=== PATIENT | male | born 1950 | race Caucasian/White ===

== ENCOUNTER 2017-10-22 23:10 | Inpatient (IN) | payer OTHER ==
[~2017-10-22] VITALS: Ht 182.9 cm; Wt 72.6 kg
--- NOTE | 2017-10-22 23:15 | NUR ---
TO BED 12 A 67 YO MALE PATIENT BBWIFE AND REPORTS, "BEEN FASTING FOR ONE WEEK; 2 DAYS AGO STARTED C/O WEAKNESS/SOB AND WENT TO URGENT CARE WHERE EVERYTHING WAS DONE AND NOW C/O CP UPON INSPIRATION." PATIENT IS AAOX4, SKIN WARM AND DRY. PLACED ON O2 CANNULA AT 2LPM VIA. PLACED ON CARDIAC AND VS MONITORING. GOWNED. KEPT HOB ELEVATED. COMFORT MEASURES RENDERED.
--- NOTE | 2017-10-22 23:25 | NUR ---
STARTED A SALINE LOCK ON THE LAC G18, BLOOD DRAWN AND SENT TO LAB.
--- NOTE | 2017-10-22 23:28 | NUR ---
DR SCALES AT BEDSIDE TO EVALUATE PATIENT.
[2017-10-22] MEDS ORDERED: IV NS 0.9% 1,000 ML BAG IV ONE (23:30)
[2017-10-22] MEDS ORDERED: CEFTRIAXONE 1GM BAG (ER ONLY) 50 ML IV ONE ×2 (23:30→23:39)
[2017-10-22] MEDS ORDERED: LEVOFLOXACIN 750 MG /D5W 150ML 150 ML IV ONE ×2 (23:30→23:39)
[2017-10-22 23:45] LABS: EOSINOPHILS % (AUTO) 0.4 % (0.0-6.0); HEMATOCRIT 43 % (39-51); HEMOGLOBIN 14.5 g/dL (13.5-17.5); LYMPHOCYTES # (AUTO) 0.9 /CMM (0.8-4.8); LYMPHOCYTES % (AUTO) 6.7 % (20.0-44.0); MEAN CORPUSCULAR HGB CONC 33 g/dl (31.0-36.0); MEAN CORPUSCULAR VOLUME 85 fL (80-96); MONOCYTES # (AUTO) 0.1 /CMM (0.1-1.30); MONOCYTES % (AUTO) 0.6 % (2.0-12.0); NEUTROPHILS # (AUTO) 12.5 /CMM (1.8-8.9); NEUTROPHILS % (AUTO) 92.3 % (43.0-81.0); PLATELET COUNT (AUTO) 280 /CMM (150-450); RDW COEFFICIENT OF VARIATION 13.5 (11.5-15.0); RED BLOOD CELL COUNT(AUTO) 5.13 MIL/uL (4.5-6.0); WHITE BLOOD COUNT (AUTO) 13.6 K/uL (4.3-11.0)
[2017-10-22] MEDS ORDERED: ACETAMINOPHEN 325 MG TABLET ONE (23:51)
[2017-10-22 23:57] LABS: CALCIUM, SERUM 7.9 mg/dL (8.5-10.1); CARBON DIOXIDE 24 mmol/L (21-32); CHLORIDE 89 mmol/L (98-107); GLUCOSE 129 mg/dL (74-106); POTASSIUM 3.7 mmol/L (3.5-5.1); SODIUM SERUM 128 mmol/L (136-145); UREA NITROGEN, BLOOD 15 mg/dL (7-18)
[2017-10-23] VITALS (31 sets, daily range): BP systolic 88–128; BP diastolic 46–99
[2017-10-23] MEDS ORDERED: ACETAMINOPHEN 325 MG TABLET PO ONE
[2017-10-23 00:05] LABS: TROPONIN I < 0.017 ng/mL (0.00-0.056)
[2017-10-23 00:09] LABS: ALANINE AMINOTRANSFERASE 105 U/L (12-78); ALBUMIN 2.1 g/dL (3.4-5.0); ALKALINE PHOSPHATASE 249 U/L (46-116); ASPARTATE AMINOTRANSFERASE 140 U/L (15-37); B-TYPE NATRIURETIC PEPTIDE 422 PG/ML (0-125); BILIRUBIN,DIRECT 0.6 mg/dL (0.0-0.2); BILIRUBIN,TOTAL 1.4 mg/dL (0.2-1.0); TOTAL PROTEIN, SERUM 6.3 g/dL (6.4-8.2)
[2017-10-23 00:35] LABS: APPEARANCE,URINE CLEAR (CLEAR); BILIRUBIN,URINE 1+ (NEGATIVE); BLOOD, URINE NEGATIVE Ery/uL (NEGATIVE); KETONES,URINE NEGATIVE (NEGATIVE); LEUKOCYTE ESTERASE ,URINE NEGATIVE (NEGATIVE); NITRITE, URINE NEGATIVE (NEGATIVE); PROTEIN,URINE 1+ mg/dl (NEGATIVE); UGLUCOSE NEGATIVE (NEGATIVE)
[2017-10-23 00:36] LABS: COLOR,URINE DARK YELLOW (YELLOW)
[2017-10-23 00:40] LABS: BACTERIA,URINE Moderate /HPF (None Seen); RBC,URINE 0-2 /HPF (0-2); SQUAMOUS EPITHELIAL CELL,UR Few /HPF (None Seen)
[2017-10-23 00:41] LABS: HYALINE CASTS, URINE Few /LPF (None Seen)
--- NOTE | 2017-10-23 00:42 | NUR ---
PATIENT TO RADIOLOGY.
--- NOTE | 2017-10-23 00:43 | NUR ---
CALLED NURSE SUP FOR TELE BED
[2017-10-23] MEDS ORDERED: IV NS 0.9% 1,000 ML BAG IV ONE (01:30)
--- NOTE | 2017-10-23 01:43 | NUR ---
DR SCALES AT BEDSIDE TO PLACE A CENTRAL LINE.
[2017-10-23] MEDS ORDERED: NOREPINEPHRINE 4 MG/4 ML AMPUL IV ONE (02:28)
[2017-10-23] MEDS ORDERED: NOREPINEPHRINE 8 MG in IV D5W 500 ML IV PRN ×2 (02:30→03:00)
--- NOTE | 2017-10-23 02:34 | NUR ---
REPORT GIVEN TO ENZO ZHAO FOR ICU ADMISSION AND SABINE.
[2017-10-23] MEDS ORDERED: Z GUARD REMEDY 2 OZ OINT TP PRN (03:00)
[2017-10-23] MEDS ORDERED: ONDANSETRON HCL/PF 4 MG/2 ML VIAL IVP PRN (03:00)
[2017-10-23] MEDS ORDERED: ACETAMINOPHEN 325 MG TABLET PO PRN (03:00)
[2017-10-23] MEDS ORDERED: VANCOMYCIN 1 GM in IV D5W 250 ML IV ONE (03:00)
[2017-10-23] MEDS ORDERED: IBUPROFEN 600 MG TABLET PO PRN (03:00)
[2017-10-23] MEDS: IV NS 0.9% 1,000 ML IV PRN ×3 (03:59→23:36)
[2017-10-23] MEDS: ALBUTEROL FS 2.5 MG/0.5 ML VIAL.NEB NEB SCH ×5 (04:00→20:03)
[2017-10-23] MEDS: IPRATROPIUM NEB FS 0.5 MG/2.5 ML AMPUL.NEB NEB SCH ×5 (04:00→20:03)
--- NOTE | 2017-10-23 04:15 | NUR ---
WIRE SPIRAL BINDER. ADMISSION. RECEIVED THE PT FROM ER VIA GURNEY TO ROOM 258, PT AWAKE, ALERT, FOLLOW COMMANDS ADMITTED FOR ICU PNEUMONIA, LEVOPHED STARTED FROM ER. LEVO RECEIVED 4MCG/MIN. IV RT IJ TRIPLE LUMEN. HOB ELEVATED. CARNALLITE PLANT OPERATOR SHOWING NSR. AFEBRILE. WILL CONTINUE TO MONITOR VITALS.
[2017-10-23] MEDS ORDERED: VANCOMYCIN 1 GM VIAL ONE (04:31)
[2017-10-23] MEDS ORDERED: NOREPINEPHRINE 8 MG in IV NS 0.9% 500 ML IV PRN (07:00)
--- NOTE | 2017-10-23 08:00 | NUR ---
ICU/RN: Pt received awake, alert, no distress noted. Denies CP and reports feeling better.
[2017-10-23] MEDS: HYDROCORTISONE SOD SUCCINATE 100 MG/2 ML VIAL IV SCH ×3 (08:13→17:23)
[2017-10-23] MEDS: FLUDROCORTISONE 0.1 MG TABLET PO SCH (08:13)
[2017-10-23] MEDS: ENOXAPARIN SODIUM 40 MG/0.4 ML DISP.SYRIN SQ SCH (08:14)
[2017-10-23] MEDS: NOREPINEPHRINE 8 MG in IV NS 0.9% 500 ML IV PRN (08:32)
--- NOTE | 2017-10-23 09:30 | NUR ---
ICU/RN: Dr Ken at bedside, POC porfirio pt. Verbalized understanding and in agreement with POC
[2017-10-23] MEDS ORDERED: LEVOFLOXACIN 750 MG /D5W 150ML 150 ML IV SCH (11:00)
[2017-10-23] MEDS: OSELTAMIVIR PHOSPHATE 75 MG CAPSULE PO SCH ×2 (11:33→17:23)
[2017-10-23] MEDS ORDERED: VANCOMYCIN 0.75 GM in IV D5W 250 ML IV SCH (13:00)
--- NOTE | 2017-10-23 14:50 | NUR ---
ICU/RN: Pt off Levophed. SBP maintained over 90mmHg
--- NOTE | 2017-10-23 19:07 | NUR ---
ICU/RN: Remains comfortable, no distress, off Levo. Care endorsed to PM rn for SABINE
--- NOTE | 2017-10-23 21:55 | NUR ---
BUSINESS CONTROL SPECIALIST. INITIAL ASSESSMENT. RECEIVED THE PT REST ON THE BED. AWAKE, ALERT, FOLLOW COMMANDS. FLOOR LAYER TILE SHOWING NSR. IV RT IJ TRIPLE LUMEN , LT HAND 18G. IVF NS 100ML/H,LEVO 2MCG/KG/MIN,HOB ELEVATED. WILL CONTINUE TO MONITOR VITALS.
--- NOTE | 2017-10-23 21:59 | NUR ---
RECREATION SUPERINTENDENT. AROUND 1999, PT BP 75/50. LEVOPHED RESTARTED.WILL CONTINUE TO MONITOR.
[2017-10-23] MEDS: CEFTRIAXONE 2 G in IV D5W 100 ML IV SCH (23:29)
[2017-10-23] MEDS: LEVOFLOXACIN 750 MG /D5W 150ML 150 ML IV SCH (23:54)
[2017-10-24] VITALS (32 sets, daily range): BP systolic 90–135; BP diastolic 26–83
[2017-10-24] MEDS: IPRATROPIUM NEB FS 0.5 MG/2.5 ML AMPUL.NEB NEB SCH ×6 (00:13→20:35)
[2017-10-24] MEDS: ALBUTEROL FS 2.5 MG/0.5 ML VIAL.NEB NEB SCH ×6 (00:13→20:35)
--- NOTE | 2017-10-24 03:49 | NUR ---
FELT PAD CUTTER AM CARE, ORAL CARE, BED BATH GIVEN. LINEN CHANGED, REMAINING SAME OXYGEN 2L VIA NASAL CANNULA TOLERATED WELL. SAT 95%. NO ACUTE DISTRESS NOTED. FLOOR NURSE SHOWING NSR. IV RT J TRIPLE LUMEN. IVF NS 100ML/H.LEVOPHED 2MCG/MIN.HOB ELEVATED, TURN AND REPOSITION PT INDEPENDENT. AFEBRILE, WILL CONTINUE TO MONITOR VITALS,
[2017-10-24 05:12] LABS: BASOPHILS # (AUTO) 0.1 /CMM (0.0-0.2); BASOPHILS % (AUTO) 0.5 % (0.0-2.0); HEMATOCRIT 35 % (39-51); HEMOGLOBIN 11.6 g/dL (13.5-17.5); LYMPHOCYTES % (AUTO) 4.9 % (20.0-44.0); MEAN CORPUSCULAR HGB CONC 33 g/dl (31.0-36.0); MEAN CORPUSCULAR VOLUME 86 fL (80-96); MONOCYTES # (AUTO) 0.3 /CMM (0.1-1.30); MONOCYTES % (AUTO) 1.5 % (2.0-12.0); NEUTROPHILS # (AUTO) 18.9 /CMM (1.8-8.9); NEUTROPHILS % (AUTO) 93.1 % (43.0-81.0); PLATELET COUNT (AUTO) 281 /CMM (150-450); RDW COEFFICIENT OF VARIATION 13.6 (11.5-15.0); RED BLOOD CELL COUNT(AUTO) 4.04 MIL/uL (4.5-6.0); WHITE BLOOD COUNT (AUTO) 20.3 K/uL (4.3-11.0)
[2017-10-24 05:30] LABS: ALBUMIN 1.6 g/dL (3.4-5.0); CALCIUM, SERUM 6.2 mg/dL (8.5-10.1); CREATININE 0.7 mg/dL (0.6-1.3); MAGNESIUM 3.8 mg/dL (1.8-2.4); PHOSPHORUS 2.3 mg/dL (2.5-4.9); POTASSIUM 3.1 mmol/L (3.5-5.1)
[2017-10-24 05:32] LABS: BAND % (MANUAL) 1 % (0.0-5.0); LYMPHOCYTES % (MANUAL) 3 % (16-48); MONOCYTES % (MANUAL) 3 % (0-11.0); NEUTROPHILS % (MANUAL) 93 (42-76)
[2017-10-24 05:38] LABS: THYROID STIMULATING HORMONE 0.639 uIU/mL (0.358-3.74)
--- NOTE | 2017-10-24 06:05 | NUR ---
RN NOTES AM LABS, POTASSIUM LEVEL 3.1. TIANNA SINGLETON MADE AWARE WITH NEW ORDER FOR K DUR PO 40MEQ X 1. ORDER READ BACK FOR CLARIFICATION. ORDERS NOTED, WILL AUBREE OUT
[2017-10-24] MEDS ORDERED: POTASSIUM CHLORIDE 20 MEQ TAB.PRT.SR PO SCH (06:30)
[2017-10-24] MEDS: HYDROCORTISONE SOD SUCCINATE 100 MG/2 ML VIAL IV SCH ×3 (08:29→16:56)
[2017-10-24] MEDS: OSELTAMIVIR PHOSPHATE 75 MG CAPSULE PO SCH (08:29)
[2017-10-24] MEDS: FLUDROCORTISONE 0.1 MG TABLET PO SCH (08:29)
[2017-10-24] MEDS: IV NS 0.9% 1,000 ML IV PRN ×2 (08:30→22:06)
[2017-10-24] MEDS: ENOXAPARIN SODIUM 40 MG/0.4 ML DISP.SYRIN SQ SCH (08:30)
[2017-10-24] MEDS: NOREPINEPHRINE 8 MG in IV NS 0.9% 500 ML IV PRN (08:33)
--- NOTE | 2017-10-24 10:00 | NUR ---
ICU/RN: Dr Ken at bedside, discussed POC with pt. If pt remains off Levophed may downgrade in afternoon.
[2017-10-24] MEDS ORDERED: K PHOS NEUTRAL 250 MG TABLET PO ONE (12:30)
--- NOTE | 2017-10-24 19:21 | NUR ---
ICU/RN: Care endorsed to pm rn, denies pain and discomfort at this time. SBP maintained at parameters.
--- NOTE | 2017-10-24 19:47 | NUR ---
TAKER OUT INITIAL TRANSFER NOTES RECEIVED PT ON RA AIR AOX4, WELL MARII DENIES ANY SOB OR PAIN, WITH TRANSFER ORDER TO TEL, AWAITING TO GIVE REPORT SOON RM MADE AVAILABLE. WILL F/U.
--- NOTE | 2017-10-24 20:50 | NUR ---
TRANSFER PT TO TEL REPORT GIVEN TO RN BY AT BED SIDE, PT VS WNR, O2 SAT 98% ON RA, WELL MARII, BP AT TIME OF TRANSFER 105/67 88 18, 97.8, ALL PERSONAL BELONGING TRANSFERED WITH PT.
--- NOTE | 2017-10-24 20:55 | NUR ---
TELE/RN OPENING NOTES PT RECEIVED FROM ICU VIA BED. A/OX3. BEDSIDE REPORT PROVIDED. ON ROOM AIR, BREATHING EVEN AND UNLABORED. IV TO LAC AND RIGHT IJ PATENT AND INTACT. PLACED ON TELE MONITOR, SHOWING NSR WITH HR 94. ORIENTED PT TO ROOM AND CALL LIGHT. SIDE RAILS UPX2. BED IN LOW/LOCKED POSITION WITH CALL LIGHT IN REACH. V/S TAKEN, 105/65, HR=79, R=20, TEMP=97.6F, 95% ON RA WILL CONTINUE TO MONITOR
[2017-10-25] VITALS: BP 113/72
[2017-10-25] MEDS: CEFTRIAXONE 2 G in IV D5W 100 ML IV SCH (00:02)
--- NOTE | 2017-10-25 00:05 | NUR ---
MS/RN NOTES IV TO LAC ACCIDENTALLY PULLED OUT. REINSERTED TO RIGHT HAND #22. FLUSHES WELL, NO S/S OF INFILTRATION
[2017-10-25] MEDS: LEVOFLOXACIN 750 MG /D5W 150ML 150 ML IV SCH (01:00)
[2017-10-25] MEDS: ALBUTEROL FS 2.5 MG/0.5 ML VIAL.NEB NEB SCH ×6 (03:30→23:30)
[2017-10-25] MEDS: IPRATROPIUM NEB FS 0.5 MG/2.5 ML AMPUL.NEB NEB SCH ×6 (03:30→23:30)
[2017-10-25 04:00] VITALS: BP 119/76
[2017-10-25 07:01] LABS: BASOPHILS % (AUTO) 0.1 % (0.0-2.0); EOSINOPHILS % (AUTO) 0.1 % (0.0-6.0); HEMATOCRIT 36 % (39-51); HEMOGLOBIN 11.7 g/dL (13.5-17.5); LYMPHOCYTES # (AUTO) 1.2 /CMM (0.8-4.8); LYMPHOCYTES % (AUTO) 8.8 % (20.0-44.0); MEAN CORPUSCULAR HGB CONC 33 g/dl (31.0-36.0); MEAN CORPUSCULAR VOLUME 87 fL (80-96); MONOCYTES # (AUTO) 0.3 /CMM (0.1-1.30); MONOCYTES % (AUTO) 2.3 % (2.0-12.0); NEUTROPHILS # (AUTO) 12.3 /CMM (1.8-8.9); NEUTROPHILS % (AUTO) 88.7 % (43.0-81.0); PLATELET COUNT (AUTO) 328 /CMM (150-450); RDW COEFFICIENT OF VARIATION 13.8 (11.5-15.0); WHITE BLOOD COUNT (AUTO) 13.9 K/uL (4.3-11.0)
--- NOTE | 2017-10-25 07:10 | NUR ---
INITIAL RN NOTES: PATIENT RESTING IN BED. NONLABORED BREATHING NOTED ON ROOM AIR. DENYING PAIN AND DENYING SOB. IJ TRIPLE LUMEN PATENT AND INTACT. PATIENT SINUS RHYTHM ON TELE MONITOR, 7O. AND IV ON RIGHT HAND GAUGE #22 PATENT AND INTACT. BED IN LOWEST LOCKED POSITION. CALL LIGHT WITHIN REACH. WILL CONTINUE TO MONITOR.
--- NOTE | 2017-10-25 07:35 | NUR ---
TELE/RN CLOSING NOTES PT AWAKE, A/OX4. ON ROOM AIR, BREATHING EVEN AND UNLABORED. DENIES SOB OR PAIN AT THIS TIME. SLEPT INTERMITTENTLY THROUGHOUT THE NIGHT. TELE MONITOR SHOWING NSR WITH HR 80'S. IV TO RIGHT HAND PATENT AND INTACT, IVF CURRENTLY ON HOLD, PT DOING AM CARE. IV TO RIGHT IJ PATENT AND INTACT. NO SIGNIFICANT CHANGES OVERNIGHT. BED IN LOW/LOCKED POSITION WITH CALL LIGHT IN REACH. SIDE RAILS UPX2. ENDORSED TO DAY SHIFT RN SABINE.
[2017-10-25 08:00] VITALS: BP 117/83
[2017-10-25 08:04] LABS: CALCIUM, SERUM 7.1 mg/dL (8.5-10.1); CREATININE 0.7 mg/dL (0.6-1.3); MAGNESIUM 2.3 mg/dL (1.8-2.4); PHOSPHORUS 2.7 mg/dL (2.5-4.9); POTASSIUM 3.5 mmol/L (3.5-5.1)
[2017-10-25] MEDS: HYDROCORTISONE SOD SUCCINATE 100 MG/2 ML VIAL IV SCH (08:42)
[2017-10-25] MEDS: FLUDROCORTISONE 0.1 MG TABLET PO SCH (08:49)
[2017-10-25] MEDS: ENOXAPARIN SODIUM 40 MG/0.4 ML DISP.SYRIN SQ SCH (08:51)
[2017-10-25 11:26] VITALS: BP 115/73
[2017-10-25] MEDS ORDERED: LEVOFLOXACIN (500MG) 500 MG TABLET PO SCH (13:30)
[2017-10-25 15:35] VITALS: BP 103/68
--- NOTE | 2017-10-25 17:00 | NUR ---
RN NOTES: IJ TRIPLE LUMEN REMOVE PER DR MATTHEWS'S ORDERS. PROTOCOL FOLLOWED UPON REMOVAL- PATIENT POSITIONED SUPINE, ASKED TO HOLD BREATH, LINE REMOVED SLOWLY IN ONE CONTINUOUS MOTION: NO RESISTANCE WAS MET. PRESSURE WAS APPLIED TO SITEW FOR AT SITE FOR 2 MINUTES. AN OCCLUSIVE DRESSING WAS APPLIED WITH MICROFOAM TAPE, PRESSURE DRESSING TAPE, APPLIED. REMOVAL AT 1700. DRESSING ASSESSED EVERY 15 MINS, INTACT AND NO BLEEDING NOTED. PATIENT DENYING SOB AND DENYING CHEST PAIN
--- NOTE | 2017-10-25 17:00 | NUR ---
RN NOTES: IJ TRIPLE LUMEN REMOVE PER DR MATTHEWS'S ORDERS. PROTOCOL FOLLOWED UPON REMOVAL- PATIENT POSITIONED SUPINE, ASKED TO HOLD BREATH, LINE REMOVED SLOWLY IN ONE CONTINUOUS MOTION: NO RESISTANCE WAS MET. PRESSURE WAS APPLIED TO SITE FOR AT SITE FOR 2 MINUTES. AN OCCLUSIVE DRESSING WAS APPLIED WITH MICROFOAM TAPE, PRESSURE DRESSING TAPE, APPLIED. REMOVAL AT 1700. TIP INTACT AND MEASUREMENT OF CATHETER VERIFIED. DRESSING ASSESSED EVERY 15 MINS, INTACT AND NO BLEEDING NOTED. PATIENT DENYING SOB AND DENYING CHEST PAIN
--- NOTE | 2017-10-25 18:30 | NUR ---
RN NOTES: PATIENT RESTING IN BED. NONLABORED BREATHING NOTED ON ROOM AIR. NO SIGNS OF DISTRESS NOTED. PATIENT DENYING SOB AND DENYING CHEST PAIN. PATIENT STABLE THROUGHOUT SHIFT. AOX4. IV SITE ON RIGHT HAND PATENT AND INTACT GAUGE 22. BED IN LOWEST LOCKED POSITION. CALL LIGHT WITHIN REACH. PATIENT EDUCATED ON AMBULATION. PATIENT AMBULATED, STEADY- NO SIGNS OF DISTRESS NOTED. PATIENT STEADY. NO SOB UPON AMBULATION. SINUS RHYTHM 90 ON TELE MONITOR. WILL ENDORSE TO NEXT SHIFT
--- NOTE | 2017-10-25 19:15 | NUR ---
TELE / TIE FASTENER; RECEIVED PT JUST OUT FROM THE BATHROOM AND NOTED BRUSHING HIS TEETH ALSO. DENIES ANY PAIN. BREATHING NON LABORED AND EVEN. WITH TELEMETRY ON. HL ON RH # 20 INTACT AND PATENT. RT SIDE OF THE NECK WITH DRESSING INTACT AND DRY. PT REMINDED TO CALL FOR HELP AND CALL LIGHT WITHIN REACH. BED ON LOWER POSITION AND LOCKED FOR SAFETY. SIDE RAILS UPPER PART OF BED ARE UP FOR SAFETY. WILL CONTINUE TO MONITOR. CALL LIGHT WITHIN REACH.
--- NOTE | 2017-10-25 19:40 | NUR ---
TELE/LABORATORY EQUIPMENT CLEANER; PT SAYING HAVING ABDOMINAL UPSET AND PLACED A CALL TO DR. TIANNA SINGLETON. AWAITING .
--- NOTE | 2017-10-25 19:50 | NUR ---
TELE/DINKEY LOCOMOTIVE ENGINEER; DR. TIANNA SINGLETON CALLED BACK WITH ORDERS AND CARRIED OUT.
[2017-10-25 20:00] VITALS: BP 111/63
[2017-10-25] MEDS: SUCRALFATE 1 G TABLET PO SCH (21:29)
[2017-10-26] VITALS: BP 115/65
[2017-10-26] MEDS: IPRATROPIUM NEB FS 0.5 MG/2.5 ML AMPUL.NEB NEB SCH ×3 (03:28→11:30)
[2017-10-26] MEDS: ALBUTEROL FS 2.5 MG/0.5 ML VIAL.NEB NEB SCH ×3 (03:29→11:30)
[2017-10-26 04:00] VITALS: BP 110/63
--- NOTE | 2017-10-26 06:53 | NUR ---
TELE/TRAINING AND DEVELOPMENT OFFICER; PT ON SR 70 . SLEPT FAIRLY. BREATHING NON LABORED. CONTINUE TO MONITOR. CALL LIGHT WITHIN REACH. WILL ENDORSE TO THE DAY SHIFT NURSE.
[2017-10-26 07:05] VITALS: BP 119/76
[2017-10-26 07:16] LABS: BASOPHILS % (AUTO) 0.3 % (0.0-2.0); EOSINOPHILS % (AUTO) 0.4 % (0.0-6.0); HEMATOCRIT 36 % (39-51); LYMPHOCYTES # (AUTO) 2.1 /CMM (0.8-4.8); LYMPHOCYTES % (AUTO) 15.3 % (20.0-44.0); MEAN CORPUSCULAR HGB CONC 33 g/dl (31.0-36.0); MEAN CORPUSCULAR VOLUME 86 fL (80-96); MONOCYTES # (AUTO) 0.2 /CMM (0.1-1.30); MONOCYTES % (AUTO) 1.1 % (2.0-12.0); NEUTROPHILS # (AUTO) 11.6 /CMM (1.8-8.9); NEUTROPHILS % (AUTO) 82.9 % (43.0-81.0); RDW COEFFICIENT OF VARIATION 14.1 (11.5-15.0); RED BLOOD CELL COUNT(AUTO) 4.22 MIL/uL (4.5-6.0)
[2017-10-26] MEDS ORDERED: PANTOPRAZOLE 40 MG TABLET.DR PO SCH (07:30)
[2017-10-26 07:39] LABS: CALCIUM, SERUM 7.5 mg/dL (8.5-10.1); CREATININE 0.7 mg/dL (0.6-1.3); MAGNESIUM 2.3 mg/dL (1.8-2.4); POTASSIUM 3.9 mmol/L (3.5-5.1)
--- NOTE | 2017-10-26 07:40 | NUR ---
SAMPLE COORDINATOR OPENING NOTES RECEIVED PATIENT IN BED, AWAKE ALERT AND ORIENTED X 4, RESPIRATIONS EVEN AND UNLABORED, DENIES ANY PAIN OR DISCOMFORT AT THIS TIME. ON CARDIAC MONITORING 83BPM,IV SITE TO RIGHT HAND 22 GAUGE, NO REDNESS , NO INFILTRATION TO SITE. SAFETY MEASURES IN PLACE, CALL LIGHT KEPT WITHIN REACH, WILL CONTINUE TO MONITOR.
[2017-10-26 08:00] VITALS: BP 119/76
[2017-10-26] MEDS: SUCRALFATE 1 G TABLET PO SCH (08:20)
[2017-10-26] MEDS: FLUDROCORTISONE 0.1 MG TABLET PO SCH (08:20)
[2017-10-26] MEDS: ENOXAPARIN SODIUM 40 MG/0.4 ML DISP.SYRIN SQ SCH (08:22)
[2017-10-26] MEDS ORDERED: predniSONE 20 MG TABLET PO SCH (09:00)
[2017-10-26 09:15] LABS: PLATELET COUNT (AUTO) 322 /CMM (150-450)
[2017-10-26] MEDS ORDERED: METH4TAB3 PO (10:14)
[2017-10-26] MEDS ORDERED: LACT1CAP61 PO (10:14)
[2017-10-26] MEDS ORDERED: LEVO500T75 PO (10:14)
--- NOTE | 2017-10-26 11:50 | NUR ---
MS BALER NOTES. PATIENT DISCHARGED IN STABLE CONDITION, NO COMPLAINTS OF PAIN OR DISCOMFORT, RESPIRATIONS EVEN AND UNLABORED. ID AND IV BAND REMOVED, NO BLEEDING TO IV SITES. RIGHT JUGULAR VEIN SITE DRY, NO BLEEDING. NO SIGNS AND SYMPTOMS OF INFECTION TO SITE, ALL BELONGINGS WITH PATIENT, DISCHARGE INSTRUCTIONS GIVEN TO PATIENT, VERBALIZE UNDERSTANDING. PATIENT LEFT IN STABLE CONDITION ACCOMPANIED BY PARTNER RINKU.
[2017-10-27 21:13] LABS: *MYCOPLASMA PNEUMONIAE IgG 163 U/mL (0-99); *MYCOPLASMA PNEUMONIAE IgM <770 U/mL (0-769)
== END 2017-10-26 12:00 | disposition home or self-care (01) | DRG 871 ==
LOC: ER 23:21 → TELE1 10-23 01:27 → ICU 10-23 02:41 → TELE 10-24 21:43 → MED 10-26 10:08
PROVIDERS: ADMIT Nurse Practitioner Acute Care; ATTEND Internal Medicine
DX: A41.9 Sepsis, unspecified organism (principal); N17.0 Acute kidney failure with tubular necrosis; E43 Unspecified severe protein-calorie malnutrition; R65.21 Severe sepsis with septic shock; E87.2 Acidosis; J15.6 Pneumonia due to other Gram-negative bacteria; E44.0 Moderate protein-calorie malnutrition; J15.4 Pneumonia due to other streptococci; E87.1 Hypo-osmolality and hyponatremia; K21.9 Gastro-esophageal reflux disease without esophagitis; T38.0X5A Adverse effect of glucocorticoids and synthetic analogues, initial encounter; Y92.009 Unspecified place in unspecified non-institutional (private) residence as the place of occurrence of the external cause
CPT/HCPCS: 36415; 71045-TC; 71046; 80048-TC; 80053-TC; 80061-TC; 80076-TC; 80202-TC; 81000-TC; 83605-TC; 83735-TC; 83880; 84100-TC; 84443-TC; 84484-TC; 85025-TC; 86632; 86738; 87040-TC; 87081-TC; 87086-TC; 87186-TC; 87400; 93307-TC; A4606; J0696; J1650; J1720; J1956; J3370; J7030; J7040; J7060; Z7610

== ENCOUNTER 2017-11-02 21:06 | Inpatient (IN) | payer OTHER ==
[~2017-11-02] VITALS: Ht 182.9 cm; Wt 69.5 kg
[~2017-11-02 21:06] MED LIST: LACT1CAP61 PO; LEVO500T75 PO; METH4TAB3 PO
--- NOTE | 2017-11-02 21:29 | NUR ---
PT TO ER BED 7. BIBFAMILY C/O FEVER X 1 WEEK AFTER BEING DC FROM [facility] X 1 WEEK AGO WITH DX OF PNEUMONIA. PT PLACED IN GOWN AND ON TURN DOWN WORKER. VSS/RESP EVEN UNLABORED/NAD NOTED/SKIN WARM AND DRY/DENIES N-V-D/AOX4. AWAITING MD MAHMOOD.
--- NOTE | 2017-11-02 21:40 | NUR ---
18G IV X 1 ATTEMPT TO R WRIST USING ASEPTIC TECH, BLOOD CULT X 2 AND BLOOD HANDED OVER TO THE LAB AT THE BEDSIDE. IV FLUSHES EASILY WITH NS, NO S/S INFILTRATION.
--- NOTE | 2017-11-02 21:47 | NUR ---
EMT AT BEDSIDE FOR EKG.
[2017-11-02] MEDS ORDERED: ACETAMINOPHEN ES 500 MG TABLET ONE (21:57)
--- NOTE | 2017-11-02 22:01 | NUR ---
URINE SPECIMEN OBTAINED AND SENT TO THE LAB.
[2017-11-02 22:03] LABS: BASOPHILS % (AUTO) 0.3 % (0.0-2.0); EOSINOPHILS % (AUTO) 0.2 % (0.0-6.0); HEMATOCRIT 37 % (39-51); HEMOGLOBIN 12.2 g/dL (13.5-17.5); LYMPHOCYTES # (AUTO) 0.4 /CMM (0.8-4.8); LYMPHOCYTES % (AUTO) 3.5 % (20.0-44.0); MEAN CORPUSCULAR HGB CONC 33 g/dl (31.0-36.0); MEAN CORPUSCULAR VOLUME 85 fL (80-96); MONOCYTES # (AUTO) 0.2 /CMM (0.1-1.30); MONOCYTES % (AUTO) 1.7 % (2.0-12.0); NEUTROPHILS # (AUTO) 10.4 /CMM (1.8-8.9); NEUTROPHILS % (AUTO) 94.3 % (43.0-81.0); PLATELET COUNT (AUTO) 233 /CMM (150-450); RED BLOOD CELL COUNT(AUTO) 4.35 MIL/uL (4.5-6.0)
--- NOTE | 2017-11-02 22:06 | NUR ---
XRAY AT BEDSIDE.
[2017-11-02 22:19] LABS: ALANINE AMINOTRANSFERASE 44 U/L (12-78); ALBUMIN 2.5 g/dL (3.4-5.0); ALKALINE PHOSPHATASE 86 U/L (46-116); ASPARTATE AMINOTRANSFERASE 25 U/L (15-37); BILIRUBIN,DIRECT 0.2 mg/dL (0.0-0.2); BILIRUBIN,TOTAL 0.7 mg/dL (0.2-1.0); CALCIUM, SERUM 8.4 mg/dL (8.5-10.1); CARBON DIOXIDE 23 mmol/L (21-32); CHLORIDE 98 mmol/L (98-107); CREATININE 0.8 mg/dL (0.6-1.3); GLUCOSE 136 mg/dL (74-106); POTASSIUM 3.8 mmol/L (3.5-5.1); SODIUM SERUM 134 mmol/L (136-145); UREA NITROGEN, BLOOD 14 mg/dL (7-18)
[2017-11-02 22:21] LABS: TROPONIN I < 0.017 ng/mL (0.00-0.056)
[2017-11-02] MEDS ORDERED: IV NS 0.9% 1,000 ML BAG IV ONE (22:30)
[2017-11-02] MEDS ORDERED: ACETAMINOPHEN ES 500 MG TABLET PO ONE (22:30)
[2017-11-02] MEDS ORDERED: CEFTRIAXONE 1GM BAG (ER ONLY) 50 ML IV ONE ×2 (22:30→22:46)
[2017-11-02] MEDS ORDERED: AZITHROMYCIN 500 MG in IV D5W 250 ML IV ONE (22:30)
--- NOTE | 2017-11-02 22:44 | NUR ---
RAPID FLU SWAB OBTAINED AND SENT TO THE LAB. UNABLE TO OBTAIN SPUTUM CULTIRE MADE AWARE.
[2017-11-02] MEDS ORDERED: AZITHROMYCIN 500 MG VIAL ONE (22:46)
[2017-11-02 22:50] LABS: INR 0.98 (0.87-1.13)
[2017-11-02 22:51] LABS: APPEARANCE,URINE CLEAR (CLEAR); BILIRUBIN,URINE NEGATIVE (NEGATIVE); BLOOD, URINE NEGATIVE Ery/uL (NEGATIVE); COLOR,URINE YELLOW (YELLOW); KETONES,URINE NEGATIVE (NEGATIVE); LEUKOCYTE ESTERASE ,URINE NEGATIVE (NEGATIVE); NITRITE, URINE NEGATIVE (NEGATIVE); PROTEIN,URINE NEGATIVE (NEGATIVE); UGLUCOSE NEGATIVE (NEGATIVE); UROBILINOGEN,URINE 0.2 EU/dL (0.2)
--- NOTE | 2017-11-02 22:59 | NUR ---
WAS ABLE TO OBTAIN SPUTUM SPECIMEN, SENT TO THE LAB.
--- NOTE | 2017-11-02 23:08 | NUR ---
RT AT BEDSIDE FOR ABG.
[2017-11-02 23:43] LABS: ABG BASE EXCESS 0.7 mmol/L; ABG PH 7.467 (7.350-7.450); ABG PO2 100.7 mmHg (75.0-100.0); AaDO2 58.8 mmHg; MetHb 0.5 % (0.0-1.5); O2Hb 96.5 % (94.0-97.0); SITE, ABG Left Radial; VENT MODE, BG NC 2LPM
[2017-11-03] VITALS (18 sets, daily range): BP systolic 90–128; BP diastolic 48–88
[2017-11-03] MEDS ORDERED: IV NS 0.9% 1,000 ML IV SCH
[2017-11-03] MEDS ORDERED: NOREPINEPHRINE 8 MG in IV D5W 500 ML IV PRN ×2
[2017-11-03] MEDS ORDERED: DEXTROSE 50%-WATER 50 ML DISP.SYRIN IV PRN
[2017-11-03] MEDS ORDERED: ONDANSETRON HCL/PF 4 MG/2 ML VIAL IVP PRN
--- NOTE | 2017-11-03 00:05 | NUR ---
PT RESTING QUIETLY, AROUSES TO VOICE. AT THE BEDSIDE. VSS.
[2017-11-03] MEDS ORDERED: IPRATROPIUM NEB FS 0.5 MG/2.5 ML AMPUL.NEB NEB PRN (00:30)
[2017-11-03] MEDS ORDERED: ALBUTEROL FS 2.5 MG/0.5 ML VIAL.NEB NEB PRN (00:30)
[2017-11-03] MEDS ORDERED: VANCOMYCIN 1 GM in IV D5W 250 ML IV SCH (01:00)
[2017-11-03] MEDS ORDERED: VANCOMYCIN 1 GM VIAL ONE (01:05)
[2017-11-03] MEDS ORDERED: PIPERACILLIN /TAZOBACTAM 3.375 G VIAL IV ONE ×2 (01:05→05:15)
--- NOTE | 2017-11-03 01:05 | NUR ---
REPORT GIVEN TO CECE STEEL FOR SABINE.
[2017-11-03] MEDS: PIPERACILLIN /TAZOBACTAM 3.375 G in IV D5W 50 ML IV SCH ×4 (01:21→18:02)
--- NOTE | 2017-11-03 01:26 | NUR ---
PT TRANSPORTED TO ICU 255 VIA STRETCHER ON ASSOCIATE PROFESSOR OF ENGLISH WITH RN PER ACLS PROTOCOL.
--- NOTE | 2017-11-03 02:00 | NUR ---
RN NOTES 0120AM- ADMITTED A 67 Y/O MALE PATIENT UNDER [employer]UN[employer] SERVICE OFFICER COORDINATOR WITH DIAGNOSIS OF SEPTIC SHOCK. WITH HISTORY OF FEVER X 1 WEEK AND HX. OF PNA A WEEK AGO. ACCOMPANIED BY RINKU. PT HAS NKA. NO ACUTE RESP DISTRESS ON O2 2LPM VIA NC SATING 97%. TELE MONITOR PLACED REVEALS SR HR 86. IV SIE ON R WRIST G 18 STARTED IVF NS @ 100 CC/HR AND LAC G 18 STARTED VANCOMYCIN ORDERED. BILATERAL BREATH SOUND DIMINISHED. WITH GOOD PERIPHERAL PULSES. PT IS ABLE TO AMBULATE WITH MINIMAL ASSIST. USED URINAL WHILE ON BED. INSTRUCTED TO USED CALL LIGHT WHEN NEEDS HELP KEPT PT CLEAN AND COMFORTABLE IN BED. WILL CONTINUE TO MONITOR.
[2017-11-03 05:08] LABS: BASOPHILS % (AUTO) 0.4 % (0.0-2.0); EOSINOPHILS % (AUTO) 0.1 % (0.0-6.0); HEMATOCRIT 35 % (39-51); HEMOGLOBIN 11.6 g/dL (13.5-17.5); LYMPHOCYTES # (AUTO) 1.2 /CMM (0.8-4.8); LYMPHOCYTES % (AUTO) 9.9 % (20.0-44.0); MEAN CORPUSCULAR HGB CONC 33 g/dl (31.0-36.0); MEAN CORPUSCULAR VOLUME 85 fL (80-96); MONOCYTES # (AUTO) 0.5 /CMM (0.1-1.30); MONOCYTES % (AUTO) 4.1 % (2.0-12.0); NEUTROPHILS # (AUTO) 10.8 /CMM (1.8-8.9); NEUTROPHILS % (AUTO) 85.5 % (43.0-81.0); PLATELET COUNT (AUTO) 223 /CMM (150-450); RDW COEFFICIENT OF VARIATION 14.4 (11.5-15.0); RED BLOOD CELL COUNT(AUTO) 4.12 MIL/uL (4.5-6.0); WHITE BLOOD COUNT (AUTO) 12.6 K/uL (4.3-11.0)
[2017-11-03 05:37] LABS: THYROID STIMULATING HORMONE 1.233 uIU/mL (0.358-3.74)
--- NOTE | 2017-11-03 06:46 | NUR ---
RN NOTES PT ASLEEP WELL ON BED. WOKE UP TO URINATE. ABLE TO STAND AND AMBULATE TO THE BATHROOM WITH SUPERVISION. NO ACUTE RESP DISTRESS. SATING 100% ON O2 2LPM VIA NC. PT AOX4 . TELE MONITOR REVEALS SR HR 70-80S. AFEBRILE THROUGHOUT THE SHIFT. DENIES ANY DIZZINESS. NO EPISODE OF HYPOTENSION. IV SITE INTACT AND PATENT RUNNING WITH NS @ 100 CC/HR. KEPT PT CLEAN AND COMFORTABLE IN BED. ALL NEEDS ATTENDED. WILL ENDORSED CONTINUITY OF CARE TO AM NURSE.
[2017-11-03] MEDS: BLOOD SUGAR DIAGNOSTIC 1 EACH STRIP IN SCH ×4 (07:52→21:25)
[2017-11-03] MEDS ORDERED: FEE PK DOSING 1 MIN EA MC ONE (08:11)
[2017-11-03] MEDS: PANTOPRAZOLE 40 MG VIAL IV SCH (08:28)
[2017-11-03] MEDS: LACTOBACILLUS RHAMNOSUS GG 1 EACH CAP.SPRINK PO SCH (08:28)
[2017-11-03] MEDS: VANCOMYCIN 0.75 GM in IV D5W 250 ML IV SCH ×2 (10:46→19:08)
--- NOTE | 2017-11-03 11:56 | NUR ---
CORE MAKER NOTE 0720: Received patient awake, A/Ox4. No respiratory distress noted. 100% sat on 2LPM of O2 via NC, will monitor on room air. PIVs intact. Able to use urinals or BRP. NS 100 infusing well. 1040: S/E by Dr. Ken, no new order at this time, awaiting CT chest. 1115: Patient back from CT chest, no any significant changes. VSS, still RA, 96% O2 sat.
--- NOTE | 2017-11-03 15:23 | NUR ---
RN NOTE 1430: S/E by Dr. Elias, discussed with patient and at bedside re: the POC. With order of CT abd with contrast and may transfer to MS. 1520: Transferred patient via wheelchair, in good condition. No significant changes, PIVs intact. VSS. Endorsed care to Afsatu RN, all questions and concerns were answered. Spoke with Della from [employer], aware that patient ate lunch, said they will do the CT abd in about 2 hours. Made patient aware, verbalized understanding. Patient signed consent for CT abd with contrast.
--- NOTE | 2017-11-03 15:32 | NUR ---
MS DESIGN MANAGER RECEIVING NOTE RECEIVED PT FROM ICU NURSE IN STABLE CONDITION. PT IS A/O X3. NO SOB OR SIGNS OF DISTRESS NOTED. BREATHING IS EVEN AND UNLABORED. PT SATING AT 96% ON RA. VITALS STABLE AT THIS TIME. CURRENT BP IS 105/59, HR 74, R 20, TEMP 98.5 FAHRENHEIT. HE DENIES ANY PAIN AT THIS TIME. MULTIPLE IVS NOTED TO LEFT AC AND LEFT WRIST. BOTH 18G PATENT TO NS FLUSH AND INTACT. NO REDNESS OR SIGNS OF INFILTRATION NOTED TO EITHER. PT ORIENTED TO ROOM AND USE OF CALL LIGHT. BELONGINGS VERIFIED. HE WILL REMAIN NPO UNTIL THE HIS ABDOMINAL CT WITH CONTRAST IS COMPLETED. PT VERBALIZED UNDERSTANDING OF THIS. BED IN LOW, LOCKED POSITION, SIDE RAILS UP X2, CALL LIGHT WITHIN REACH. WILL CONTINUE TO MONITOR
[2017-11-03] MEDS ORDERED: IOHEXOL-350 100 ML VIAL IV ONE (17:10)
[2017-11-03] MEDS ORDERED: IV NS 0.9% 250 ML IV ONE (17:11)
--- NOTE | 2017-11-03 18:58 | NUR ---
MS RN CLOSING NOTES PT REMAINS IN STABLE CONDITION. ALL NEEDS WERE MET DURING SHIFT AND ORDERS CARRIED OUT ACCORDINGLY. ALL DUE MEDS GIVEN. BREATHING REMAINS EVEN AND UNLABORED. CT OF THE ABDOMEN AND PELVIS TAKEN, RESULTS STILL PENDING. SAFETY MEASURES REMAIN IN PLACE. WILL ENDORSE TO NIGHTSHIFT NURSE FOR SABINE
--- NOTE | 2017-11-03 19:30 | NUR ---
MS/RN OPENING NOTES PT AWAKE, RESTING COMFORTABLY IN BED. A/OX4, ON ROOM AIR, BREATHING EVEN AND UNLABORED. DENIES SOB OR PAIN, JUST SOME DISCOMFORT TO LEFT CHEST, DOES NOT WANT PAIN MEDICATION AT THIS TIME. IV TO LAC AND RIGHT WRIST PATENT AND INTACT, CURRENTLY RUNNING IV ABX. BED IN LOW/LOCKED POSITION WITH CALL LIGHT IN REACH. SIDE RAILS UPX2. WILL CONTINUE TO MONITOR
[2017-11-03] MEDS: ACETAMINOPHEN 325 MG TABLET PO PRN (21:33)
--- NOTE | 2017-11-03 21:48 | NUR ---
MS/RN NOTES PT NOTED SWEATING AND RED IN FACE. RECHECKED TEMP =102.4F ORALLY. ADMINISTERED PRN TYLENOL AND COOLING MEASURES IMPLEMENTED. Addendum: 11/04/17 at 0527 by CLAIRE ISAACS RN TEMP RECHECKED= 97.7F
[2017-11-04] MEDS: PIPERACILLIN /TAZOBACTAM 3.375 G in IV D5W 50 ML IV SCH ×4 (00:41→18:57)
[2017-11-04] MEDS: VANCOMYCIN 0.75 GM in IV D5W 250 ML IV SCH ×3 (03:00→17:20)
[2017-11-04 06:49] LABS: CALCIUM, SERUM 7.7 mg/dL (8.5-10.1); CREATININE 0.5 mg/dL (0.6-1.3); POTASSIUM 3.7 mmol/L (3.5-5.1)
[2017-11-04] MEDS: BLOOD SUGAR DIAGNOSTIC 1 EACH STRIP IN SCH ×4 (06:57→21:26)
--- NOTE | 2017-11-04 07:25 | NUR ---
ms rn initial notes Received patient in bed, awake, head of bed elevated, no SOB or distress noted, on room air. Alert and oriented x 4, verbally responsive and able to make needs known. IV intact and patent with IVF infusing well. No complaint of pain or discomfort at this time. Call light with in patient reach, will continue to monitor accordingly.
[2017-11-04 08:00] VITALS: BP 97/58
[2017-11-04] MEDS: LACTOBACILLUS RHAMNOSUS GG 1 EACH CAP.SPRINK PO SCH (08:56)
[2017-11-04] MEDS: PANTOPRAZOLE 40 MG VIAL IV SCH (08:56)
[2017-11-04 09:38] VITALS: BP 97/58
[2017-11-04] MEDS: INSULIN REGULAR, HUMAN 100 UNIT/ML 3 ML VIAL SQ PRN ×2 (12:06→21:27)
--- NOTE | 2017-11-04 13:04 | NUR ---
TEXTED DR. ABDALLA FOR MRI ABD APPROVAL.
--- NOTE | 2017-11-04 13:05 | NUR ---
MRI APPROVED. PATIENT HAS TO BE NPO 4 HRS BEFORE EXAM
[2017-11-04] MEDS: ACETAMINOPHEN 325 MG TABLET PO PRN (13:28)
--- NOTE | 2017-11-04 14:11 | NUR ---
SPOKE TO NURSE CM.HAVE THE PATIENT NPO AFTER MIDNITE, MRI ABDOMEN W/WO WILL BE TOMORROW AM10/05/2016. CHELSY THE SET UP INSPECTOR NOTIFIED.
[2017-11-04] MEDS ORDERED: ENOXAPARIN SODIUM 80 MG/0.8 ML DISP.SYRIN SQ SCH (15:30)
[2017-11-04 15:53] VITALS: BP 129/68
[2017-11-04] MEDS: IV NS 0.9% 1,000 ML IV PRN (17:24)
--- NOTE | 2017-11-04 17:45 | NUR ---
ms rn notes Blood sugar checked 109 no coverage given. Will continue to monitor
--- NOTE | 2017-11-04 19:20 | NUR ---
MS/RN OPENING NOTES PT RECEIVED ASLEEP, EASILY AROUSABLE TO NAME. A/OX4. ON ROOM AIR, BREATHING EVEN AND UNLABORED. DENIES SOB OR PAIN AT THIS TIME. IV TO RFA PATENT AND INTACT RUNNING IVF ORDERED. PT TO BE NPO POST MIDNIGHT FOR MRI OF ABDOMEN WITH CONTRAST. PT AWARE. BED IN LOW/LOCKED POSITION WITH CALL LIGHT IN REACH. SIDE RAILS UPX2. WILL CONTINUE TO MONITOR
--- NOTE | 2017-11-04 19:28 | NUR ---
ms rn closing notes All needs provided, attended, and anticipated. In stable condition. Endorsed to next shift RN to continue care.
[2017-11-04 20:00] VITALS: BP 98/50
[2017-11-05] MEDS: PIPERACILLIN /TAZOBACTAM 3.375 G in IV D5W 50 ML IV SCH ×4 (00:22→17:03)
[2017-11-05] MEDS: VANCOMYCIN 0.75 GM in IV D5W 250 ML IV SCH ×3 (02:03→17:50)
[2017-11-05] MEDS: BLOOD SUGAR DIAGNOSTIC 1 EACH STRIP IN SCH ×4 (06:35→21:32)
[2017-11-05] MEDS: INSULIN REGULAR, HUMAN 100 UNIT/ML 3 ML VIAL SQ PRN ×3 (06:36→17:04)
--- NOTE | 2017-11-05 07:20 | NUR ---
REPORT RECEIVED AT THE BEDSIDE. PATIENT IS RESTING COMFORTABLY IN BED. NO SOB OR DISTRESS NOTED AT THIS TIME. PATIENT DENIES PAIN AT THIS TIME. BED IN A LOW POSITION, CALL LIGHT WITHIN PATIENT REACH, FAMILY IS AT THE BEDSIDE. WILL CONTINUE TO MONITOR.
--- NOTE | 2017-11-05 07:25 | NUR ---
MS/RN CLOSING NOTES PT AWAKE, A/OX4. SON AT BEDSIDE. ON ROOM AIR, BREATHING EVEN AND UNLABORED. DENIES SOB OR PAIN THROUGHOUT SHIFT. IV TO RFA PATENT AND INTACT RUNNING ABX ORDERED. PT NPO FOR MRI OF ABDOMEN WITH CONTRAST. CONSENTS AND CHECKLIST SIGNED AND PLACED IN CHART. PT HAD 2 VERY SMALL BM'S DURING SHIFT, NOT ENOUGH TO SEND FOR OVA AND PARASITE. PT AWARE THAT WE STILL NEED TO COLLECT STOOL. NO SIGNIFICANT CHANGES OVERNIGHT. BED IN LOW/LOCKED POSITION WITH CALL LIGHT IN REACH, SIDE RAILS UPX2. ENDORSED TO DAY SHIFT RN SABINE.
[2017-11-05 08:00] VITALS: BP 120/60
[2017-11-05 08:10] LABS: AFP, TUMOR MARKER 2.8 ng/mL (0.0-8.3)
--- NOTE | 2017-11-05 09:00 | NUR ---
PT TAKEN TO MRI FOR TESTING. WILL ASK LAB TO RETURN FOR BLOOD DRAW AND GIVE MEDS WHEN PATIENT RETURNS.
[2017-11-05 09:30] LABS: CALCIUM, SERUM 7.8 mg/dL (8.5-10.1); CREATININE 0.9 mg/dL (0.6-1.3); POTASSIUM 3.6 mmol/L (3.5-5.1)
--- NOTE | 2017-11-05 10:19 | NUR ---
HOLDING LOVENOX UNTIL ABLE TO TALK TO DR LISA ABOUT ORDER FOR CT GUIDED BIOPSY AND ANTICOAGULANT TIMING. PER RADIOLOGY, PT MUST NOT HAVE BLOOD THINNERS WITHIN 24 HOURS OF BIOPSY AND PT CURRENTLY HAS A THROMBUS. WAITING FOR RETURN CALL.
--- NOTE | 2017-11-05 10:52 | NUR ---
SPOKE TO RADIOLOGY MD. STATES HE MUST VERIFY ORDERS WITH DR LISA ABOUT LOVENOX BEFORE THEY CAN PROCEED WITH THE PROCEDURE. STATES TO HOLD LOVENOX FOR NOW UNTIL THEY CAN VERIFY ORDERS. RADIOLOGY TO CALL BACK WITH MD DECISION.
--- NOTE | 2017-11-05 11:06 | NUR ---
PT ON MAURIX , RADIOLOGIST TO GET A HOLD OF ORDERING PHYSICIAN AND GET BACK TO US.
[2017-11-05] MEDS: PANTOPRAZOLE 40 MG VIAL IV SCH (11:07)
[2017-11-05 11:12] LABS: INR 0.98 (0.87-1.13)
[2017-11-05] MEDS: LACTOBACILLUS RHAMNOSUS GG 1 EACH CAP.SPRINK PO SCH (11:30)
[2017-11-05] MEDS: ACETAMINOPHEN 325 MG TABLET PO PRN (13:55)
--- NOTE | 2017-11-05 15:29 | NUR ---
FLU SWAB RESULTED. NO FLU. ALSO CONTACTED RADIOLOGY TO FOLLOW UP ON CT BIOPSY. PER RADIOLOGIST, WILL WAIT UNTIL FRIDAY MORNING TO DO THE BIOPSY. DR LISA SPOKE TO THE RADIOLOGIST AND IS AWARE, MD STOPPED LOVENOX FOR NOW.
[2017-11-05 16:00] VITALS: BP 118/68
[2017-11-05] MEDS: IV NS 0.9% 1,000 ML IV PRN (17:04)
--- NOTE | 2017-11-05 19:10 | NUR ---
NO SIGNIFICANT CHANGES IN PATIENT CONDITION THROUGHOUT THE SHIFT. NO SOB OR DISTRESS NOTED AT THIS TIME. PATIENT DENIES PAIN. BED IN A LOW POSITION, CALL LIGHT WITHIN PATIENT REACH. WILL ENDORSE FOR SABINE.
--- NOTE | 2017-11-05 19:30 | NUR ---
RN NOTES RECEIVED PATIENT IN BED AWAKE, AO X 3, ABLE TO MAKE NEEDS KNOWN. NO ACUTE DISTRESS NOTED. DENIES ANY PAIN AT THIS TIME. IV SITE PATENT, INTACT; IVF INFUSING ORDERED. SAFETY REMINDERS GIVEN. ON LOW BED WITH BILATERAL UPPER SIDE RAILS UP. CALL JAMES WITHIN EASY REACH. WILL CONTINUE TO MONITOR.
[2017-11-05 20:00] VITALS: BP 103/61
[2017-11-05] MEDS ORDERED: GADOVERSETAMIDE 2.5 MMOL/5 ML VIAL IJ ONE (20:50)
[2017-11-05] MEDS ORDERED: GADOVERSETAMIDE 5 MMOL/10 ML VIAL IJ ONE (20:50)
[2017-11-06] MEDS: PIPERACILLIN /TAZOBACTAM 3.375 G in IV D5W 50 ML IV SCH ×5 (00:13→23:58)
[2017-11-06] MEDS: VANCOMYCIN 0.75 GM in IV D5W 250 ML IV SCH ×3 (02:16→18:40)
--- NOTE | 2017-11-06 06:00 | NUR ---
RN NOTES PATIENT ASLEEP, EASILY AROUSABLE. RESPIRATIONS EVEN. NO SIGNS OF PAIN NOTED. NO SYMPTOMS OF HYPER/HYPOGLYCEMIA. DUE MEDS GIVEN WITH NO ASE NOTED. NEEDS ATTENDED. SAFETY PRECAUTIONS AND COMFORT MEASURES IN PLACE. WILL GIVE REPORT TO DAY SHIFT FOR CONTINUITY OF CARE.
[2017-11-06] MEDS: BLOOD SUGAR DIAGNOSTIC 1 EACH STRIP IN SCH (06:31)
--- NOTE | 2017-11-06 07:42 | NUR ---
MS RN OPENING NOTES RECEIVED PT FROM NIGHTSHIFT NURSE IN STABLE CONDITION. PT IS A/O X4. NO SOB OR SIGNS OF DISTRESS NOTED. BREATHING IS EVEN AND UNLABORED. PT ON RA AND SATING WELL. VITAL SIGNS STABLE THROUGHOUT THE NIGHT. NO FEVER NOTED. IV TO RIGHT RA NOTED TO BE PATENT AND INTACT. NO REDNESS OR SIGNS OF INFILTRATION NOTED. PT TOLERATING S INFUSION @ 100ML/HR. WELL. BED IN LOW LOCKED POSITION, SIDE RAILS UP X2, CALL LIGHT WITHIN REACH. WILL CONTINUE TO MONITOR
[2017-11-06 08:00] VITALS: BP 113/65
[2017-11-06] MEDS: PANTOPRAZOLE 40 MG VIAL IV SCH (09:22)
[2017-11-06] MEDS: LACTOBACILLUS RHAMNOSUS GG 1 EACH CAP.SPRINK PO SCH (09:22)
[2017-11-06 09:41] LABS: CALCIUM, SERUM 8.2 mg/dL (8.5-10.1); CREATININE 0.8 mg/dL (0.6-1.3); POTASSIUM 3.2 mmol/L (3.5-5.1)
[2017-11-06] MEDS: ACETAMINOPHEN 325 MG TABLET PO PRN (12:00)
[2017-11-06] MEDS: IV NS 0.9% 1,000 ML IV PRN (12:05)
--- NOTE | 2017-11-06 12:43 | NUR ---
MS RN NOTES DR LISA WAS MADE AWARE OF PT'S STABLE BLOOD SUGARS AND GAVE AN ORDER TO D/C BLOOD SUGAR MONITORING. HE ALSO GAVE AN ORDER TO ADMINISTER 40MEQ OF POTASSIUM THE PT'S LEVEL INS 3.2. WILL CARRY OUT ORDERS
[2017-11-06] MEDS ORDERED: POTASSIUM CHLORIDE 20 MEQ TAB.PRT.SR PO ONE (12:45)
[2017-11-06 15:25] LABS: BASOPHILS # (AUTO) 0.1 /CMM (0.0-0.2); BASOPHILS % (AUTO) 0.6 % (0.0-2.0); HEMATOCRIT 34 % (39-51); HEMOGLOBIN 11.5 g/dL (13.5-17.5); INR 0.97 (0.87-1.13); LYMPHOCYTES # (AUTO) 1.5 /CMM (0.8-4.8); LYMPHOCYTES % (AUTO) 14.1 % (20.0-44.0); MEAN CORPUSCULAR HGB CONC 34 g/dl (31.0-36.0); MEAN CORPUSCULAR VOLUME 84 fL (80-96); MONOCYTES # (AUTO) 0.5 /CMM (0.1-1.30); MONOCYTES % (AUTO) 4.6 % (2.0-12.0); NEUTROPHILS # (AUTO) 8.3 /CMM (1.8-8.9); NEUTROPHILS % (AUTO) 79.7 % (43.0-81.0); PLATELET COUNT (AUTO) 256 /CMM (150-450); RDW COEFFICIENT OF VARIATION 13.6 (11.5-15.0); RED BLOOD CELL COUNT(AUTO) 4.08 MIL/uL (4.5-6.0); WHITE BLOOD COUNT (AUTO) 10.5 K/uL (4.3-11.0)
[2017-11-06 16:00] VITALS: BP 118/70
[2017-11-06 16:15] LABS: QFT MITOGEN VALUE 3.24 IU/mL (.); QFT TB AG MINUS NIL VALUE <0.00 IU/mL (.); QFT TB AG VALUE 0.09 IU/mL (.); QFT TB GOLD Negative (Negative)
[2017-11-06 17:47] LABS: BAND % (MANUAL) 17 % (0.0-5.0); LYMPHOCYTES % (MANUAL) 18 % (16-48); MONOCYTES % (MANUAL) 7 % (0-11.0); NEUTROPHILS % (MANUAL) 58 (42-76)
[2017-11-06 18:25] LABS: OCCULT BLOOD STOOL NEGATIVE (NEGATIVE)
[2017-11-06 20:00] VITALS: BP 106/63
--- NOTE | 2017-11-06 20:02 | NUR ---
MS RN CLOSING NOTES PT REMAINS STABLE. ALL NEEDS MET DURING SHIFT AND ORDERS CARRIED OUT ACCORDINGLY. ALL DUE MEDS GIVEN. VITALS STABLE THROUGHOUT SHIFT. WILL ENDORSE TO NIGHTSHIFT NURSE FOR SABINE
[2017-11-06 22:26] LABS: CALCIUM, SERUM 7.8 mg/dL (8.5-10.1); CREATININE 0.8 mg/dL (0.6-1.3); POTASSIUM 3.4 mmol/L (3.5-5.1)
[2017-11-07] MEDS: VANCOMYCIN 0.75 GM in IV D5W 250 ML IV SCH ×3 (02:35→17:55)
[2017-11-07] MEDS: IV NS 0.9% 1,000 ML IV PRN (06:23)
[2017-11-07] MEDS: PIPERACILLIN /TAZOBACTAM 3.375 G in IV D5W 50 ML IV SCH ×4 (06:24→23:43)
--- NOTE | 2017-11-07 06:30 | NUR ---
RN NOTES PATIENT ASLEEP, EASILY AROUSABLE. RESPIRATIONS EVEN. NO SIGNS OF PAIN NOTED. DUE MEDS GIVEN WITH NO ASE NOTED. NEEDS ATTENDED. SAFETY PRECAUTIONS AND COMFORT MEASURES IN PLACE. WILL GIVE REPORT TO DAY SHIFT FOR CONTINUITY OF CARE.
--- NOTE | 2017-11-07 07:35 | NUR ---
RN OPEN NOTES RECEIVED REPORT FROM BOW TACKER RN. PATIENT IS IN BED. NO SIGNS AND SYMPTOMS OF DISTRESS. BED IN LOW POSITION, LOCKED AND TWO SIDE RAILS ARE UP. CALL LIGHT WITHIN REACH FOR SAFETY. WILL CONTINUE TO MONITOR PATIENT
--- NOTE | 2017-11-07 08:19 | NUR ---
PATIENT IS OFF THE FLOOR FOR CT GUIDED LIVER BIOPSY
[2017-11-07 08:41] VITALS: BP 103/52
[2017-11-07] MEDS ORDERED: MIDAZOLAM HCL 5MG/ML VIAL 25 MG/5 ML VIAL IV ONE (09:00)
[2017-11-07] MEDS: PANTOPRAZOLE 40 MG VIAL IV SCH (09:00)
[2017-11-07] MEDS: LACTOBACILLUS RHAMNOSUS GG 1 EACH CAP.SPRINK PO SCH (09:00)
[2017-11-07] MEDS ORDERED: NALOXONE PREFILLED SYRINGE 2 MG/2 ML SYRINGE IV ONE (09:00)
[2017-11-07] MEDS ORDERED: FENTANYL PF 250MCG/5ML AMPUL IV ONE (09:00)
[2017-11-07] MEDS ORDERED: LIDOCAINE HCL/PF 1% 30 ML SDV ONE (09:31)
--- NOTE | 2017-11-07 10:20 | NUR ---
patient is back to the unit. S/P Liver Biopsy
[2017-11-07] MEDS: ACETAMINOPHEN 325 MG TABLET PO PRN ×2 (10:31→20:02)
--- NOTE | 2017-11-07 10:51 | NUR ---
BIOPSY SPECIMEN DROPPED AT THE LAB BY JESICA SHELLEY RN AT 10:43AM. LOGGED FILLED UP
[2017-11-07 16:16] VITALS: BP 120/64
--- NOTE | 2017-11-07 18:54 | NUR ---
RN CLOSING NOTES PATIENT IS IN BED. AWAKE. NO SIGNS AND SYMPTOMS OF DISTRESS. ALL CARE WAS PROVIDED. PATIENT KEPT DRY AND CLEAN. BED IN LOW POSITION, LOCKED AND TWO SIDE RAILS ARE UP. CALL LIGHT WITHIN REACH FOR SAFETY. WILL ENDORSE TO PAINTER DRUM NURSE.
--- NOTE | 2017-11-07 19:15 | NUR ---
MS RN NOTES RECEIVED PT IN BED, AWAKE, A/O X 4. VERBALLY RESPONSIVE. AT BEDSIDE. NO ACUTE DISTRESS, NO SOB NOTED. RESPIRATION IS RUBEN AND UNLABORED. PT IS AMBULATORY. PT WITH TEMP OF 101 AT THIS TIME, COOLING MEASURES RENDERED. WILL MONITOR PT CLOSELY. IV SITE ON RFA INTACT AND PATENT, IVF INFUSING WELL. DENIES ANY PAIN OR DISCOMFORT AT THIS TIME. ALL NEEDS ATTENDED AND MET. KEPT COMFORTABLE. SAFETY PRECAUTIONS OBSERVED. CALL LIGHT WITHIN REACH. WILL CONT TO MONITOR.
[2017-11-07 20:00] VITALS: BP 99/62
[2017-11-07] MEDS: ENOXAPARIN SODIUM 80 MG/0.8 ML DISP.SYRIN SQ SCH (20:01)
[2017-11-07 23:27] LABS: BASOPHILS % (AUTO) 0.5 % (0.0-2.0); EOSINOPHILS % (AUTO) 1.1 % (0.0-6.0); HEMATOCRIT 32 % (39-51); HEMOGLOBIN 10.8 g/dL (13.5-17.5); LYMPHOCYTES # (AUTO) 1.5 /CMM (0.8-4.8); LYMPHOCYTES % (AUTO) 16.7 % (20.0-44.0); MEAN CORPUSCULAR HGB CONC 33 g/dl (31.0-36.0); MEAN CORPUSCULAR VOLUME 83 fL (80-96); MONOCYTES # (AUTO) 0.4 /CMM (0.1-1.30); MONOCYTES % (AUTO) 4.2 % (2.0-12.0); NEUTROPHILS # (AUTO) 6.8 /CMM (1.8-8.9); NEUTROPHILS % (AUTO) 77.5 % (43.0-81.0); PLATELET COUNT (AUTO) 287 /CMM (150-450); RDW COEFFICIENT OF VARIATION 14.1 (11.5-15.0); RED BLOOD CELL COUNT(AUTO) 3.89 MIL/uL (4.5-6.0); WHITE BLOOD COUNT (AUTO) 8.8 K/uL (4.3-11.0)
[2017-11-08] MEDS: VANCOMYCIN 0.75 GM in IV D5W 250 ML IV SCH ×3 (01:26→16:39)
[2017-11-08] MEDS: PIPERACILLIN /TAZOBACTAM 3.375 G in IV D5W 50 ML IV SCH ×3 (05:57→17:37)
[2017-11-08] MEDS: IV NS 0.9% 1,000 ML IV PRN (06:02)
[2017-11-08 06:48] LABS: CALCIUM, SERUM 7.6 mg/dL (8.5-10.1); CREATININE 0.7 mg/dL (0.6-1.3); POTASSIUM 3.1 mmol/L (3.5-5.1)
--- NOTE | 2017-11-08 06:52 | NUR ---
MS RN NOTES PT IN BED, RESTING COMFORTABLY, AROUSES EASILY. A/O X 4. VERBALLY RESPONSIVE. NO ACUTE DISTRESS, NO SOB NOTED. RESPIRATION IS RUBEN AND UNLABORED. PT IS AMBULATORY. IV SITE ON RFA INTACT AND PATENT, IVF INFUSING WELL. DENIES ANY PAIN OR DISCOMFORT AT THIS TIME. ALL NEEDS ATTENDED AND MET. KEPT COMFORTABLE. SAFETY PRECAUTIONS OBSERVED. CALL LIGHT WITHIN REACH. WILL ENDORSE TO NEXT SHIFT FOR SABINE. .
--- NOTE | 2017-11-08 07:30 | NUR ---
RN OPEN NOTES RECEIVED REPORT FROM RESOLUTION MANAGER NURSE. PATIENT IS IN BED. ALERT AND ORIENTED TO NAME, PLACE AND TIME. NO SIGNS AND SYMPTOMS OF DISTRESS. BED IN LOW POSITION, LOCKED AND TWO SIDE RAILS ARE UP. CALL LIGHT WITHIN REACH FOR SAFETY. WILL CONTINUE TO MONITOR AND ASSESS PATIENT
[2017-11-08 08:00] VITALS: BP 121/67
[2017-11-08] MEDS: PANTOPRAZOLE 40 MG VIAL IV SCH (08:05)
[2017-11-08] MEDS: POTASSIUM CHLORIDE 20 MEQ TAB.PRT.SR PO SCH ×3 (08:05→10:27)
[2017-11-08] MEDS: LACTOBACILLUS RHAMNOSUS GG 1 EACH CAP.SPRINK PO SCH (08:05)
[2017-11-08] MEDS: ENOXAPARIN SODIUM 80 MG/0.8 ML DISP.SYRIN SQ SCH (08:06)
--- NOTE | 2017-11-08 10:20 | NUR ---
DR LISA AT BEDSIDE. PATIENT NEEDS HIGHER LEVEL OF CARE. ANGUS LANGUAGE INSTRUCTOR NOTIFIED.
[2017-11-08 16:00] VITALS: BP 122/70
--- NOTE | 2017-11-08 17:30 | NUR ---
REPORT GAVE TO YUKI RN AT [facility] [phone]. PATIENT IS GOING TO ROOM 514
[2017-11-08] MEDS: ACETAMINOPHEN 325 MG TABLET PO PRN (17:36)
--- NOTE | 2017-11-08 19:10 | NUR ---
RN CLOSING NOTES PATIENT IS IN BED. AWAKE. NO SIGNS AND SYMPTOMS OF DISTRESS. ALL CARE WAS PROVIDED. PATIENT KEPT DRY AND CLEAN. BED IN LOW POSITION, LOCKED AND TWO SIDE RAILS ARE UP. CALL LIGHT WITHIN REACH FOR SAFETY. PATIENT IS SCHEDULE TO BE TRANSFERRED TO ANOTHER ACUTE HOSPITAL ([facility]). PENDING TRANSFORATION. WILL ENDORSE TO BUSINESS DIVISION CHAIR NURSE.
[2017-11-08 20:00] VITALS: BP 103/67
--- NOTE | 2017-11-08 20:00 | NUR ---
MS RN NOTES RECEIVED PT AWAKE A/OX4. NOT IN ANY DISTRESS. NO SOB NOTED. DENIES ANY PAIN OR DISCOMFORT AT THIS TIME. WITH IV-HL PATENT & INTACT. CALL LIGHT WITHIN REACH. BED IN LOWEST POSITION. SR UP X 2 FOR SAFETY. PT FOR D/C TO [facility] FOR HIGHER LEVEL OF CARE, POSSIBLE LIVER SURGERY. REPORT GIVEN TO [facility] BY LATOYA ZHAO. WILL CONTINUE TO MONITOR.
--- NOTE | 2017-11-08 20:55 | NUR ---
MS RN NOTES AMBULANCE CAME IN TO PHOTOENGRAVING APPRENTICE PT. VSS. AFEBRILE. SKIN INTACT. D/C INSTRUCTIONS PROVIDED. PT UNDERSTOOD IT WELL. BELONGINGS SENT WITH PT. REPORT GIVEN TO DOC AMBULANCE PERSONNEL FOR CONTINUITY OF CARE.
== END 2017-11-08 21:00 | disposition short-term general hospital (02) | DRG 871 ==
LOC: ER 21:09 → ICU 11-03 00:22 → MEDSG2 11-03 15:00
PROVIDERS: ADMIT Registered Nurse; ATTEND Registered Nurse
PROC: 0F923ZX Drainage of Left Lobe Liver, Percutaneous Approach, Diagnostic (ICD-10-PCS; principal; 2017-11-07)
DX: A41.9 Sepsis, unspecified organism (principal); R65.21 Severe sepsis with septic shock; I26.90 Septic pulmonary embolism without acute cor pulmonale; I82.220 Acute embolism and thrombosis of inferior vena cava; K75.0 Abscess of liver; J15.6 Pneumonia due to other Gram-negative bacteria; J90 Pleural effusion, not elsewhere classified; I82.0 Budd-Chiari syndrome; E44.0 Moderate protein-calorie malnutrition; E87.1 Hypo-osmolality and hyponatremia; K21.9 Gastro-esophageal reflux disease without esophagitis; Z87.01 Personal history of pneumonia (recurrent); D63.8 Anemia in other chronic diseases classified elsewhere; E83.51 Hypocalcemia; E87.6 Hypokalemia; Z80.0 Family history of malignant neoplasm of digestive organs; Z79.899 Other long term (current) drug therapy
CPT/HCPCS: 36415; 36600; 71045-TC; 71250-TC; 74183-TC; 75989-TC; 76942-TC; 80048-TC; 80061-TC; 80076-TC; 80202-TC; 81000-TC; 82105; 82272-TC; 82378; 82803-TC; 82962-TC; 83605-TC; 84443-TC; 84484-TC; 85025-TC; 85610-TC; 85730-TC; 86301; 86706; 86709; 86803; 87040-TC; 87070-TC; 87081-TC; 87086-TC; 87177; 87209; 87340; 87400; 87449; 87899; 88305-TC; 88312-TC; 93307-TC; A4606; A9579; C9113; J0456; J0696; J1650; J1815; J2250; J2310; J2543; J3010; J3370; J3490; J7030; J7050; J7060; Q9967; Z7610